=== PATIENT | female | born 1985 | race Caucasian/White ===

== ENCOUNTER 2018-02-16 23:07 | Emergency (ER) | payer SELFPAY ==
[2018-02-16 23:30] VITALS: TEMP 98.1
--- NOTE | 2018-02-17 00:14 | C.PDOC ---
History Of Present Illness 33 year old female presents to the ED complaining of reproducible chest pain worsening for the past week. She denies any heavy lifting or trauma. She denies any SOB, cough, fever, or chills. Time Seen by Provider: 02/17/18 00:10 Chief Complaint (Nursing): Chest Pain History Per: Patient History/Exam Limitations: no limitations Onset/Duration Of Symptoms: Days Current Symptoms Are (Timing): Still Present Severity: Moderate Pain Scale Rating Of: 4 Past Medical History Reviewed: Historical Data, Nursing Documentation, Vital Signs Vital Signs: Last Vital Signs Temp 98.1 F 02/16/18 23:22 Pulse 77 02/16/18 23:22 Resp 18 02/16/18 23:22 BP 95/65 L 02/16/18 23:22 Pulse Ox 99 02/17/18 01:09 - Medical History PMH: No Chronic Diseases Surgical History: (1) Family History: States: No Known Family Hx - Social History Hx Tobacco Use: No Hx Alcohol Use: No Hx Substance Use: No - Immunization History Hx Tetanus Toxoid Vaccination: No Hx Influenza Vaccination: No Hx Pneumococcal Vaccination: No Review Of Systems Constitutional: Negative for: Fever, Chills Cardiovascular: Positive for: Chest Pain Respiratory: Negative for: Cough, Shortness of Breath Physical Exam - Physical Exam Appears: Non-toxic Skin: Warm, Dry Head: Normacephalic Eye(s): bilateral: Normal Inspection Nose: Normal Oral Mucosa: Moist Chest: Symmetrical, Tenderness (left upper chest wall tenderness ) Cardiovascular: Rhythm Regular Respiratory: No Rales, No Rhonchi, No Wheezing Gastrointestinal/Abdominal: Soft, No Tenderness Extremity: Normal ROM Neurological/Psych: Oriented x3, Normal Speech Gait: Steady ED Course And Treatment - Laboratory Results Result Diagrams: 02/17/18 00:43 02/17/18 00:43 ECG: Interpreted By Me, Viewed By Me ECG Rhythm: Sinus Rhythm (75), Nonspecific Changes O2 Sat by Pulse Oximetry: 99 Pulse Ox Interpretation: Normal Reevaluation Time: 01:35 Reassessment Condition: Improved Medical Decision Making Medical Decision Making: Orders: - EKG - Aspirin 325mg PO - Toradol 30mg IVP - UA - Labwork I considered the following diagnoses: acute coronary syndrome, pulmonary embolism, lower respiratory infection, aortic dissection/aneurysm, pneumothorax , pericarditis, esophagitis/GERD, zoster and esophageal rupture but found them to be unlikely based on the history, physical exam, and diagnostics. My conclusions regarding the unlikely diagnoses were based on: the absence of significant EKG abnormalities, the lack of suggestive x-ray findings, the absence of significant abnormalities on cardiac monitoring, the absence of asymmetric pulses,.Pt is cp free and wants to go home Upon provider reevaluation patient is feeling better, is medically stable, and requires no further treatment in the ED at this time. Patient will be discharged home with Rx for motrin . Counseling was provided and all questions were answered regarding diagnosis and need for follow up with the referred clinic. There is agreement to discharge plan. Return if symptoms persist or worsen. Disposition Counseled Patient/Family Regarding: Studies Performed, Diagnosis, Need For Followup, Rx Given - Disposition Referrals: [facility] [Outside] [facility] [Outside] Disposition: HOME/ ROUTINE Disposition Time: 00:11 Condition: FAIR Additional Instructions: jackson calzada Prescriptions: Ibuprofen [Motrin Tab] 800 mg PO TID PRN #12 tab PRN Reason: Pain, Moderate (4-7) Instructions: Costochondritis (DC) Forms: [facility] [employer] (Somali) - Clinical Impression Clinical Impression: Costochondritis - Scribe Statement The provider has reviewed the documentation as recorded by the Scribromario Rodriguez All medical record entries made by the Jeriibromario were at my direction and personally dictated by me. I have reviewed the chart and agree that the record accurately reflects my personal performance of the history, physical exam, medical decision making, and the department course for this patient. I have also personally directed, reviewed, and agree with the discharge instructions and disposition.
[2018-02-17] MEDS ORDERED: Aspirin 325 mg EC Tablets PO STA (00:29)
[2018-02-17 00:54] LABS: BASO # 0.1 K/uL (0.0-0.2); BASO % 0.7 % (0.0-2.0); EOS # 0.1 K/uL (0.0-0.7); EOS % 0.8 % (0.0-4.0); HEMOGLOBIN 12.1 g/dL (11.0-16.0); LYMPH # 4.2 K/uL (1.0-4.3); LYMPH % 42.6 % (20.0-40.0); MEAN CELL VOLUME 88.3 fL (81.0-99.0); MEAN CORPUSCULAR HEMOGLOBIN 29.6 pg (27.0-31.0); MEAN CORPUSCULAR HGB CONC 33.6 g/dL (33.0-37.0); MEAN PLATELET VOLUME 8.6 fL (7.2-11.7); MONO # 0.6 K/uL (0.0-0.8); NEUT % 49.9 % (50.0-75.0); NRBC % 0.2 % (0.0-2.0); RBC 4.09 Mil/uL (3.80-5.20); RED CELL DISTRIBUTION WIDTH 13.5 % (11.5-14.5)
[2018-02-17 00:59] LABS: PROTHROMBIN TIME 11.4 SECONDS (9.7-12.2)
[2018-02-17 01:10] LABS: ALB/GLOB RATIO 1.6 (1.0-2.1); ALT/SGPT 19 U/L (9-52); AST/SGOT 13 U/L (14-36); BLOOD UREA NITROGEN 10 mg/dL (7-17); CALCIUM 9.2 mg/dl (8.6-10.4); GFR NON-AFRICAN AMERICAN > 60
[2018-02-17 01:21] LABS: B-TYPE NATRIURETIC PEPTIDE 34.7 pg/mL (0-450)
[2018-02-17 01:34] VITALS: BP 93/62; PULSE 81; RESP 16; O2SAT 99
--- NOTE | 2018-02-18 12:37 | CARD ---
APPROVED REPORT Date of service: 02/16/2018 EKG Measurement Heart [id number] <Conclusion> Normal sinus rhythm Normal ECG
== END 2018-02-17 01:39 | disposition home or self-care (01) ==
LOC: C.ER 23:07
DX: M94.0 Chondrocostal junction syndrome [Tietze] (principal)
CPT/HCPCS: 80053; 83880; 84484; 84703; 85025; 85610; 85730; 93005; 94770; 96374; 99283; J1885

== ENCOUNTER 2018-08-14 19:23 | Emergency (ER) | payer OTHER ==
[2018-08-14 19:49] VITALS: RESP 20; TEMP 98.9
[2018-08-14] MEDS ORDERED: Lidocaine 5% Patch TD ONE (21:08)
[2018-08-14] MEDS: Lidocaine 5% Patch TD STA (21:18)
--- NOTE | 2018-08-14 21:51 | C.PDOC ---
History Of Present Illness 41 y/o male presents to the ER complaining of low back pain which has been present for the past 3 days. Patient states that she has been doing a lot of housework recently. Denies having bowel/bladder incontinence, dysuria, and hematuria. Time Seen by Provider: 08/14/18 20:07 Chief Complaint (Nursing): Back Pain History Per: Patient History/Exam Limitations: no limitations Onset/Duration Of Symptoms: Days Current Symptoms Are (Timing): Still Present Severity: Moderate Past Medical History Reviewed: Historical Data, Nursing Documentation, Vital Signs Vital Signs: Last Vital Signs Temp 98.9 F 08/14/18 19:40 Pulse 76 08/14/18 19:40 Resp 20 08/14/18 19:40 BP 95/60 L 08/14/18 19:40 Pulse Ox 99 08/14/18 19:40 - Medical History PMH: No Chronic Diseases Surgical History: (1) Family History: States: No Known Family Hx - Social History Hx Tobacco Use: No Hx Alcohol Use: No Hx Substance Use: No - Immunization History Hx Tetanus Toxoid Vaccination: No Hx Influenza Vaccination: No Hx Pneumococcal Vaccination: No Review Of Systems Except As Marked, All Systems Reviewed And Found Negative. Genitourinary: Negative for: Dysuria, Frequency, Incontinence, Hematuria Musculoskeletal: Positive for: Back Pain Physical Exam - Physical Exam Appears: Non-toxic, No Acute Distress Skin: Normal Color, Warm, Dry Head: Atraumatic, Normacephalic Eye(s): bilateral: Normal Inspection Nose: Normal Oral Mucosa: Moist Neck: Supple Chest: Symmetrical Cardiovascular: Rhythm Regular Respiratory: Normal Breath Sounds, No Rales, No Rhonchi, No Wheezing Gastrointestinal/Abdominal: Normal Exam, Soft, No Tenderness, No Guarding, No Rebound Back: Vertebral Tenderness, Paraspinal Tenderness Neurological/Psych: Oriented x3, Normal Speech ED Course And Treatment O2 Sat by Pulse Oximetry: 99 (RA) Pulse Ox Interpretation: Normal Progress Note: D-[id number]-[id number] Spine ordered. Patient treated with Toradol IM, Valium PO, Prednisone PO and Lidoderm Patch. On re-evaluation patient feels better, ambulatory, no neuro deficit. Patient is stable to be d/c home with PMD/Clinic follow up. Disposition - Disposition Referrals: [facility] [Outside] Disposition: HOME/ ROUTINE Disposition Time: 21:53 Condition: STABLE Additional Instructions: Follow up in Clinic within 1-2 days. Return to ED if feel worse. 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 - Scribe Statement The provider has reviewed the documentation as recorded by the David Bear Provider Attestation All medical record entries made by the Jeriibromario were at my direction and personally dictated by me. I have reviewed the chart and agree that the record accurately reflects my personal performance of the history, physical exam, medical decision making, and the department course for this patient. I have also personally directed, reviewed, and agree with the discharge instructions and disposition.
[2018-08-14 22:26] VITALS: BP 100/72; PULSE 89
[2018-08-14 22:32] VITALS: O2SAT 99
--- NOTE | 2018-08-15 08:27 | RAD ---
Date of service: 08/14/2018 PROCEDURE: Radiographs of the Lumbar Spine. HISTORY: atraumatic pain COMPARISON: No prior. FINDINGS: BONES: Normal alignment. No listhesis. No fracture. DISC SPACES: Unremarkable. OTHER FINDINGS: None. IMPRESSION: Unremarkable radiographs of the lumbar spine.
== END 2018-08-14 22:24 | disposition home or self-care (01) ==
LOC: C.ER 19:23
DX: M54.5 Low back pain (principal)
CPT/HCPCS: 72100; 81025; 96372; 99283; J1885

== ENCOUNTER 2018-10-11 23:39 | Emergency (ER) | payer OTHER ==
[2018-10-12 00:02] VITALS: TEMP 98.5
--- NOTE | 2018-10-12 01:17 | C.PDOC ---
History Of Present Illness Patient' history obtained by Reproductive Healthcare Assistant [id number]. 33 year old female presents to the ED c/o generalized body aches, chest and nasal congestion since yesterday. Patient also states she has a positive test at home, her LMP was on 08/14/18, patient wants to know how far along she is. Patient denies fever, chills, nausea, vomit, diarrhea,abdominal pain, SOB, palpitations, dysuria, hematuria, vaginal bleeding, vaginal discharge. 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 denies: Fever Ear Symptoms: Bilateral: None Recent travel outside of the [place]: No Additional History Per: Patient Past Medical History Reviewed: Historical Data, Nursing Documentation, Vital Signs Vital Signs: Last Vital Signs Temp 98.5 F 10/11/18 23:54 Pulse 88 10/11/18 23:54 Resp 20 10/11/18 23:54 BP 109/65 10/11/18 23:54 Pulse Ox 98 10/11/18 23:54 Primary Care Provider: FAMILY PROVIDER,NO - Medical History PMH: No Chronic Diseases Surgical History: (1) Family History: States: Unknown Family Hx - Social History Hx Tobacco Use: No Hx Alcohol Use: No Hx Substance Use: No - Immunization History Hx Tetanus Toxoid Vaccination: No Hx Influenza Vaccination: No Hx Pneumococcal Vaccination: No Review Of Systems Constitutional: Positive for: Malaise. Negative for: Fever, Chills ENT: Positive for: Nose Discharge, Nose Congestion Cardiovascular: Negative for: Chest Pain Respiratory: Positive for: Cough. Negative for: Shortness of Breath Gastrointestinal: Negative for: Nausea, Vomiting, Abdominal Pain Genitourinary: Negative for: Vaginal Discharge, Vaginal Bleeding Skin: Negative for: Rash Neurological: Negative for: Weakness, Numbness, Headache Physical Exam - Physical Exam Appears: Non-toxic, No Acute Distress Skin: Normal Color, Warm, Dry Head: Atraumatic, Normacephalic Eye(s): bilateral: Normal Inspection Neck: Normal ROM, Supple Chest: Symmetrical Cardiovascular: Rhythm Regular Respiratory: Normal Breath Sounds, No Rales, No Rhonchi, No Wheezing Gastrointestinal/Abdominal: Soft, No Tenderness, No Distention Extremity: Normal ROM, No Tenderness, No Swelling Neurological/Psych: Oriented x3, Normal Speech, Normal Cognition Gait: Steady ED Course And Treatment O2 Sat by Pulse Oximetry: 98 (ON RA) Pulse Ox Interpretation: Normal Progress Note: Plan: - Tylenol 975 mg PO. Patient remained afebrile in the ED, breathing without difficulty in NAD. Patient was reassured, advised to follow up with OB for further evaluation and follow up regairding . Disposition Counseled Patient/Family Regarding: Diagnosis, Need For Followup, Rx Given - Disposition Referrals: [facility] [Outside] Disposition: HOME/ ROUTINE Disposition Time: 01:14 Condition: STABLE Additional Instructions: Increase PO fluids Take tylenol as directed every 4 hr Get bed rest Advise not too fast now or while Return to ER if wprse Prescriptions: Acetaminophen [Tylenol] 975 mg PO QID #40 capsule Instructions: Viral Syndrome (DC) Forms: [employer] (Uzbek) - Clinical Impression Clinical Impression: Influenza-like illness - PA / PHARMACOLOGIST / Resident Statement MD/DO has reviewed & agrees with the documentation as recorded. - Scribe Statement The provider has reviewed the documentation as recorded by the Scribe Zoran Cooley All medical record entries made by the Scribromario were at my direction and personally dictated by me. I have reviewed the chart and agree that the record accurately reflects my personal performance of the history, physical exam, medical decision making, and the department course for this patient. I have also personally directed, reviewed, and agree with the discharge instructions and disposition.
[2018-10-12 01:28] VITALS: BP 115/66; PULSE 72; RESP 19
[2018-10-12 02:23] VITALS: O2SAT 98
== END 2018-10-12 01:28 | disposition home or self-care (01) ==
LOC: C.ER 23:39
DX: J11.1 Influenza due to unidentified influenza virus with other respiratory manifestations (principal)